=== PATIENT | male | born 1990 | race Two or more races ===

== ENCOUNTER 2025-07-15 12:14 | Emergency (ER) | payer OTHER ==
[~2025-07-15] VITALS: Ht 177.8 cm; Wt 79.8 kg
[2025-07-15 13:12] LABS: PLATELET COUNT (AUTO) 206 K/uL (150-450); RED BLOOD CELL COUNT(AUTO) 4.99 MIL/uL (4.5-6.0); RED CELL DISTRIBUTION WIDTH 12.8 % (11.5-15.0); WHITE BLOOD COUNT (AUTO) 5.4 K/uL (4.3-11.0)
[2025-07-15 13:13] LABS: CALCIUM, SERUM 9.8 mg/dL (8.5-10.1); CREATININE 0.6 mg/dL (0.6-1.3); SODIUM SERUM 136.0 mmol/L (136-145); UREA NITROGEN, BLOOD 15.0 mg/dL (7-18)
[2025-07-15 13:19] LABS: ASPARTATE AMINOTRANSFERASE 23.0 U/L (15-37); TOTAL PROTEIN, SERUM 7.5 g/dL (6.4-8.2)
[2025-07-15 14:01] VITALS: BP 131/76; TEMP 98.4; O2SAT 97
== END 2025-07-15 14:01 | disposition home or self-care (01) ==
LOC: ER 12:23
DX: R53.83 Other fatigue (principal)
CPT/HCPCS: 36415; 71045-TC; 80048-TC; 80076-TC; 83690-TC; 83735-TC; 85025-TC